=== PATIENT | male | born 1970 | race Caucasian/White ===

== ENCOUNTER 2019-06-07 17:44 | Emergency (ER) | payer MEDICARE, OTHER ==
[~2019-06-07] VITALS: Ht 185.4 cm; Wt 120.2 kg
[~2019-06-07 17:44] MED LIST: DIVA500EC PO; GLIP5 PO; LOPE2C PO; METF500 PO; QUET200 PO; SIMV40 PO
[2019-06-07] MEDS ORDERED: ASPI81CH PO (18:19)
[2019-06-07 18:57] LABS: BASOPHILS ABSOLUTE AUTO 0.03 K/mm3 (0.00-0.23); BASOPHILS PERCENT AUTO 0 % (0-2); EOSINOPHILS ABSOLUTE AUTO 0.11 K/mm3 (0.00-0.68); EOSINOPHILS PERCENT AUTO 1 % (0-6); Hematocrit 39.2 % (37.0-53.0); Hemoglobin 12.8 g/dL (13.5-17.5); IMMATURE GRAN ABSOLUTE AUTO 0.04 K/mm3 (0.00-0.10); IMMATURE GRAN PERCENT AUTO 0 % (0-1); LYMPHOCYTES ABSOLUTE AUTO 1.82 K/mm3 (0.84-5.20); LYMPHOCYTES PERCENT AUTO 20 % (21-46); MONOCYTES PERCENT AUTO 11 % (4-13); Mean Corpuscular HGB Conc 32.7 g/dL (31.5-36.5); Mean Corpuscular Volume 95 fL (80-100); Mean Platelet Volume 9.7 fL (9.1-12.4); NEUTROPHILS ABSOLUTE AUTO 6.04 K/mm3 (1.96-9.15); NEUTROPHILS PERCENT AUTO 67 % (41-73); Platelet Count 207 K/mm3 (150-400); RDW Coefficient Variation 12.6 % (11.7-14.2); RDW Standard Deviation 43.6 fL (35.1-46.3); Red Blood Cell Count 4.13 M/mm3 (4.30-5.90); White Blood Cell Count 9.04 K/mm3 (4.00-11.30)
[2019-06-07 19:22] LABS: Alanine Aminotransfer (ALT/SGP 13 U/L (12-78); Albumin, Blood 3.4 g/dL (3.4-5.0); Albumin/Globulin Ratio 0.8 (0.8-1.8); Alk Phos 78 U/L (50-136); Anion Gap 7 mmol/L (6-16); Aspartate Aminotrans (AST/SGOT 6 U/L (12-37); Bilirubin, Total 0.8 mg/dL (0.1-1.0); Blood Urea Nitrogen 9 mg/dL (8-24); Bun/Creatinine Ratio 12.9 (12.0-20.0); CO2, Blood 26 mmol/L (21-32); Calcium, Blood 8.5 mg/dL (8.5-10.1); Chloride, Blood 102 mmol/L (98-108); Globulin, Blood 4.2 g/dL (2.2-4.0); Glomerular Filtration Rate >60 (60-); Glucose, Blood 94 mg/dL (70-99); Potassium, Blood 3.6 mmol/L (3.5-5.5); Sodium, Blood 135 mmol/L (136-145); Total Protein, Blood 7.6 g/dL (6.4-8.2)
== END 2019-06-07 23:48 | disposition short-term general hospital (02) ==
LOC: ER 17:44
PROVIDERS: Emergency Medicine
DX: L02.215 Cutaneous abscess of perineum (principal); R73.03 Prediabetes; E78.5 Hyperlipidemia, unspecified; F17.200 Nicotine dependence, unspecified, uncomplicated; Z79.899 Other long term (current) drug therapy; Z79.82 Long term (current) use of aspirin
CPT/HCPCS: 36415; 72193; 80053; 85025; 96365-59; 99284-25; J2543; Q9967

== ENCOUNTER → 2021-08-04 | Outpatient (CLI) | payer MEDICARE, OTHER ==
[~2021-08-04] MED LIST changes: +ASPI81CH PO
[2021-08-04 17:33] LABS: Anion Gap 7 mmol/L (6-16); Blood Urea Nitrogen 6 mg/dL (8-24); Bun/Creatinine Ratio 11.9 (12.0-20.0); CO2, Blood 25 mmol/L (21-32); Calcium, Blood 8.7 mg/dL (8.5-10.1); Chloride, Blood 106 mmol/L (98-108); Creatinine, Blood 0.51 mg/dL (0.60-1.20); Glomerular Filtration Rate >60 (60-); Glucose, Blood 199 mg/dL (70-99); Potassium, Blood 4.3 mmol/L (3.5-5.5); Sodium, Blood 138 mmol/L (136-145)
== END | disposition home or self-care (01) ==
LOC: LAB 16:20 → LAB SHORT 16:20
PROVIDERS: Nurse Practitioner Family
DX: E11.65 Type 2 diabetes mellitus with hyperglycemia (principal)
CPT/HCPCS: 80048; 82043; 83036

== ENCOUNTER 2022-04-01 14:04 | Emergency (ER) | payer MEDICARE, OTHER ==
[~2022-04-01] VITALS: Ht 185.4 cm; Wt 111.1 kg
[2022-04-01 14:48] LABS: BASOPHILS ABSOLUTE AUTO 0.03 K/mm3 (0.00-0.23); BASOPHILS PERCENT AUTO 0 % (0-2); EOSINOPHILS ABSOLUTE AUTO 0.19 K/mm3 (0.00-0.68); EOSINOPHILS PERCENT AUTO 2 % (0-6); Hematocrit 41.6 % (37.0-53.0); Hemoglobin 14.1 g/dL (13.5-17.5); IMMATURE GRAN PERCENT AUTO 1 % (0-1); LYMPHOCYTES ABSOLUTE AUTO 1.81 K/mm3 (0.84-5.20); LYMPHOCYTES PERCENT AUTO 17 % (21-46); MONOCYTES ABSOLUTE AUTO 0.89 K/mm3 (0.16-1.47); MONOCYTES PERCENT AUTO 8 % (4-13); Mean Corpuscular HGB 31.4 pg (26.0-34.0); Mean Corpuscular HGB Conc 33.9 g/dL (31.5-36.5); Mean Corpuscular Volume 93 fL (80-100); Mean Platelet Volume 9.4 fL (9.1-12.4); NEUTROPHILS PERCENT AUTO 72 % (41-73); Platelet Count 260 K/mm3 (150-400); RDW Coefficient Variation 12.7 % (11.7-14.2); RDW Standard Deviation 43.5 fL (35.1-46.3); Red Blood Cell Count 4.49 M/mm3 (4.30-5.90); White Blood Cell Count 10.72 K/mm3 (4.00-11.30)
[2022-04-01 14:50] LABS: Source, Urine Voided
[2022-04-01 14:56] LABS: Appearance, Urine Turbid (Clear); Bilirubin, Urine Neg (Neg); Blood, Urine 2+ (Neg); Color, Urine Yellow (P-Yellow); Glucose Qualitative, Urine 4+ (Neg); Ketones, Urine 1+ (Neg); Leukocyte Esterase, Urine 3+ (Neg); Nitrite, Urine Neg (Neg); Protein, Urine 2+ (Neg); Urobilinogen, Urine NORM (Normal)
[2022-04-01 15:03] LABS: Bacteria Many /hpf; Hyaline Casts 0-2 /lpf (0-2); Red Blood Cells, Urine TNTC /hpf (0-2); Squamous Epithelial Cells Few /hpf (Few); Transitional Epithelial Cells Rare /hpf (0-Rare); White Blood Cells, Urine TNTC /hpf (0-5)
[2022-04-01 15:14] LABS: Albumin, Blood 3.5 g/dL (3.4-5.0); Albumin/Globulin Ratio 0.8 (0.8-1.8); Bilirubin, Total 0.4 mg/dL (0.1-1.0); Bun/Creatinine Ratio 21.2 (12.0-20.0); Calcium, Blood 9.4 mg/dL (8.5-10.1); Creatinine, Blood 0.57 mg/dL (0.60-1.20); Globulin, Blood 4.2 g/dL (2.2-4.0); Potassium, Blood 4.3 mmol/L (3.5-5.5); Total Protein, Blood 7.7 g/dL (6.4-8.2)
[2022-04-01] MEDS ORDERED: CEPH500 PO (16:06)
== END 2022-04-01 16:15 | disposition home or self-care (01) ==
LOC: ER 14:04
PROVIDERS: Emergency Medicine
DX: N39.0 Urinary tract infection, site not specified (principal); F17.200 Nicotine dependence, unspecified, uncomplicated; Z79.899 Other long term (current) drug therapy; Z79.82 Long term (current) use of aspirin; Z79.84 Long term (current) use of oral hypoglycemic drugs
CPT/HCPCS: 80053; 81001; 83690; 85025; A9270

== ENCOUNTER 2022-04-05 14:00 | Inpatient (IN) | payer MEDICARE, OTHER ==
[~2022-04-05] VITALS: Ht 182.9 cm; Wt 111.1 kg
[~2022-04-05 14:00] MED LIST changes: +CEPH500 PO
[2022-04-05 15:16] LABS: BASOPHILS ABSOLUTE AUTO 0.08 K/mm3 (0.00-0.23); BASOPHILS PERCENT AUTO 0 % (0-2); EOSINOPHILS ABSOLUTE AUTO 0.08 K/mm3 (0.00-0.68); EOSINOPHILS PERCENT AUTO 0 % (0-6); Hematocrit 40.4 % (37.0-53.0); Hemoglobin 13.4 g/dL (13.5-17.5); IMMATURE GRAN PERCENT AUTO 3 % (0-1); LYMPHOCYTES ABSOLUTE AUTO 1.04 K/mm3 (0.84-5.20); LYMPHOCYTES PERCENT AUTO 6 % (21-46); MONOCYTES ABSOLUTE AUTO 2.23 K/mm3 (0.16-1.47); MONOCYTES PERCENT AUTO 13 % (4-13); Mean Corpuscular HGB Conc 33.2 g/dL (31.5-36.5); Mean Corpuscular Volume 94 fL (80-100); Mean Platelet Volume 9.2 fL (9.1-12.4); NEUTROPHILS ABSOLUTE AUTO 13.85 K/mm3 (1.96-9.15); NEUTROPHILS PERCENT AUTO 78 % (41-73); Platelet Count 261 K/mm3 (150-400); RDW Coefficient Variation 12.7 % (11.7-14.2); RDW Standard Deviation 43.7 fL (35.1-46.3); Red Blood Cell Count 4.32 M/mm3 (4.30-5.90); White Blood Cell Count 17.78 K/mm3 (4.00-11.30)
[2022-04-05 15:17] LABS: Source, Urine Clean Catch
[2022-04-05 15:20] LABS: Appearance, Urine Cloudy (Clear); Bilirubin, Urine Neg (Neg); Blood, Urine 2+ (Neg); Color, Urine Amber (P-Yellow); Glucose Qualitative, Urine 4+ (Neg); Ketones, Urine 1+ (Neg); Leukocyte Esterase, Urine 3+ (Neg); Nitrite, Urine Neg (Neg); Protein, Urine 2+ (Neg); Urobilinogen, Urine NORM (Normal)
[2022-04-05 15:30] LABS: C-REACTIVE PROTEIN, EXT RANGE 14.7 mg/dL (0.000-0.300)
[2022-04-05 15:33] LABS: Albumin, Blood 2.8 g/dL (3.4-5.0); Albumin/Globulin Ratio 0.6 (0.8-1.8); Bilirubin, Total 0.6 mg/dL (0.1-1.0); Bun/Creatinine Ratio 16.7 (12.0-20.0); Calcium, Blood 8.6 mg/dL (8.5-10.1); Creatinine, Blood 0.66 mg/dL (0.60-1.20); Globulin, Blood 4.5 g/dL (2.2-4.0); Potassium, Blood 3.7 mmol/L (3.5-5.5); Total Protein, Blood 7.3 g/dL (6.4-8.2)
[2022-04-05 15:34] LABS: Squamous Epithelial Cells Few /hpf (Few); White Blood Cells, Urine TNTC /hpf (0-5)
[2022-04-05 15:35] LABS: Bacteria Few /hpf; Mucus Light (0-Heavy)
[2022-04-05 18:49] LABS: Valproic Acid 48.8 ug/mL (50.0-100.0)
[2022-04-05] MEDS ORDERED: BASAGLAR K100 UNIT/8 SQ (18:56)
[2022-04-05] MEDS ORDERED: LISINOPRIL2.5 MG PO (18:56)
[2022-04-05] MEDS ORDERED: DIVALPROEX SOD500 M2 PO (18:59)
--- NOTE | 2022-04-05 21:32 | NUR ---
2119: REPORT RECIEVED FROM ER NURSE HUGO.
[2022-04-06 06:30] LABS: BASOPHILS ABSOLUTE AUTO 0.09 K/mm3 (0.00-0.23); BASOPHILS PERCENT AUTO 1 % (0-2); EOSINOPHILS ABSOLUTE AUTO 0.14 K/mm3 (0.00-0.68); EOSINOPHILS PERCENT AUTO 1 % (0-6); Hematocrit 37.3 % (37.0-53.0); Hemoglobin 12.7 g/dL (13.5-17.5); IMMATURE GRAN ABSOLUTE AUTO 0.49 K/mm3 (0.00-0.10); IMMATURE GRAN PERCENT AUTO 3 % (0-1); LYMPHOCYTES PERCENT AUTO 12 % (21-46); MONOCYTES ABSOLUTE AUTO 1.94 K/mm3 (0.16-1.47); MONOCYTES PERCENT AUTO 12 % (4-13); Mean Corpuscular HGB 31.6 pg (26.0-34.0); Mean Corpuscular Volume 93 fL (80-100); NEUTROPHILS ABSOLUTE AUTO 11.49 K/mm3 (1.96-9.15); NEUTROPHILS PERCENT AUTO 72 % (41-73); Platelet Count 251 K/mm3 (150-400); RDW Coefficient Variation 12.8 % (11.7-14.2); RDW Standard Deviation 43.7 fL (35.1-46.3); Red Blood Cell Count 4.02 M/mm3 (4.30-5.90); White Blood Cell Count 16.05 K/mm3 (4.00-11.30)
[2022-04-06 06:51] LABS: Albumin, Blood 2.6 g/dL (3.4-5.0); Albumin/Globulin Ratio 0.6 (0.8-1.8); Bilirubin, Total 0.3 mg/dL (0.1-1.0); Calcium, Blood 8.6 mg/dL (8.5-10.1); Creatinine, Blood 0.56 mg/dL (0.60-1.20); Globulin, Blood 4.2 g/dL (2.2-4.0); Potassium, Blood 3.6 mmol/L (3.5-5.5); Total Protein, Blood 6.8 g/dL (6.4-8.2)
--- NOTE | 2022-04-06 07:12 | NUR ---
SHIFT SUMMARY PT AOX4. IMPULSIVE AND CARELESS WITH IV LINES/TELE. PT APPEARS STEADY ON HIS FEET. BED ALARM ON FOR SAFETY. VOIDING FREQUENTLY OVERNIGHT WITH DECENT AMOUNT EACH TIME (200-350MLS), DARK URINE. PT ALSO HAVE MULTIPLE BM, SOME HARD SMALL AND PASTY. PT ADMITTED FOR PERINEAL ABSCESS. APPEARS TO HAVE SWELLING AND REDNESS IN PERINEAL AREA AND SCROTUM WITH SOME SEROSANG DRAINAGE. PT APPEARS TO BE IN A LOT OF PAIN WHEN SITTING ON HIS BUTTOM. FACE SCALE 10/10, SCREAMS INTERMITTENTLY. PAIN MEDICATED WITH FENTANYL 50MCG. APPEARS SOME RELIEF. PT SLEEPING GOOD OVERNIGHT. CBG'S ABOVE 200. NS INFUSING 75MLS/HR. ABX GIVEN VIA IV. VSS. TELE ON NSR AT 80'S PER ADAN. CALL LIGHT WITHIN REACH. REPORT GIVEN TO DEBORAH BEGUM.
[2022-04-06 10:11] LABS: Vancomycin, Trough 8.9 ug/mL (5.0-10.0)
[2022-04-06 10:20] LABS: SARS-Cov-2 (COVID-19) PCR, MMC NEGATIVE (NEGATIVE)
--- NOTE | 2022-04-06 12:57 | NUR ---
04/06/22 1257 Denise Aguirre MARTIN CATHETER PLACED INTRAOPERATIVELY BY SURGEON.
--- NOTE | 2022-04-06 18:41 | NUR ---
SHIFT SUMMARY PT HAS BEEN HAVING EPISODES OF AGITATION AND NON-COMPLIANCE THROUGHOUT THE SHIFT. PT TO OR FOR I&D OF PERINEAL ABSCESS, RETURNING TO ROOM AT APPROX 1420. AFTER RETURN TO ROOM, PT REMOVED TELEBOX LEADS AND PULLED HIS IV. PER DR CLEMONS, TELE MONITORING COULD BE DCED. PT ATE FOOD BROUGHT TO HIM BY A VISITOR WELL MOST OF HIS DINNER TRAY, APPEARS TO BE TOLERATING PO INPUT WELL. IV REESTABLISHED IN R HAND W/ IV ABX ADMINISTERED. PT APPEARS TO MAINTAIN HIS AGITATION. PT IS RESTING IN ROOM AT THIS TIME. WILL CONTINUE TO MONITOR AND UPDATE NECESSARY.
[2022-04-07 03:48] LABS: Hematocrit 39.1 % (37.0-53.0); Hemoglobin 13.2 g/dL (13.5-17.5); Mean Corpuscular HGB 31.3 pg (26.0-34.0); Mean Corpuscular HGB Conc 33.8 g/dL (31.5-36.5); Mean Corpuscular Volume 93 fL (80-100); Mean Platelet Volume 9.1 fL (9.1-12.4); Platelet Count 319 K/mm3 (150-400); RDW Coefficient Variation 12.6 % (11.7-14.2); RDW Standard Deviation 42.9 fL (35.1-46.3); Red Blood Cell Count 4.22 M/mm3 (4.30-5.90); White Blood Cell Count 15.74 K/mm3 (4.00-11.30)
[2022-04-07 04:04] LABS: Bun/Creatinine Ratio 22.6 (12.0-20.0); Calcium, Blood 8.7 mg/dL (8.5-10.1); Creatinine, Blood 0.58 mg/dL (0.60-1.20); Potassium, Blood 4.1 mmol/L (3.5-5.5)
[2022-04-07 04:09] LABS: BAND PERCENT MAN 13 % (0-8); BASOPHILS PERCENT MAN 0 % (0-2); EOSINOPHILS PERCENT MAN 0 % (0-6); LYMPHOCYTES ABSOLUTE MAN 0.94 K/mm3 (0.84-5.20); LYMPHOCYTES PERCENT MAN 6 % (21-46); METAMYELOCYTE ABSOLUTE MAN 0.47 K/mm3 (0.00-0.00); METAMYELOCYTE PERCENT MAN 3 % (0-0); MONOCYTES ABSOLUTE MAN 0.62 K/mm3 (0.16-1.47); MONOCYTES PERCENT MAN 4 % (4-13); MYELOCYTE ABSOLUTE MAN 0.31 K/mm3 (0.00-0.00); MYELOCYTE PERCENT MAN 2 % (0-0); NEUTROPHILS ABSOLUTE MAN 13.37 K/mm3 (1.96-9.15); SEG NEUTROPHILS PERCENT MAN 72 % (41-73); TOTAL CELLS COUNTED 100
--- NOTE | 2022-04-07 04:09 | NUR ---
PT IS A&OX4, INDEPENDENT WITH CARES AND IS ABLE TO MAKE NEEDS KNOWN. POST OP DAY 1 FOR A SURGICAL I&D OF THE PERINEUM, DRESSINGS CDI. PT DENIES PAIN AT THIS TIME. PREVIOUS SHIFT REPORTS PT PULLING AT IV LINES, PT HAS BEEN APPROPRIATE THIS SHIFT. SLEEPS MINIMALLY THIS SHIFT, 4+ HOURS. HAS MARTIN IN PLACE FOR SURGICAL HEALING. WILL CONTINUE TO MONITOR THIS PT AND GIVE HANDOFF REPORT TO ONCOMING NURSE.
[2022-04-07] MEDS ORDERED: VISBIOME 112.51 EACH PO (10:52)
[2022-04-07] MEDS ORDERED: AMOCLA875 PO (10:52)
[2022-04-07] MEDS ORDERED: HYDR1TAB94 PO (10:53)
--- NOTE | 2022-04-07 12:11 | NUR ---
DISCHARGE SUMMARY POD1 PERINEAL I&D, TOLERATING PO, PAIN TOLERABLE WITHOUT MEDICATIONS, AMBULATING INDEPENDENTLY, VOIDING WELL. PT REMOVED HIS OWN IV PRIOR TO DISCHARGE ORDERS AND HAS BEEN EAGER TO GO HOME. DISCUSSED DISCHARGE ORDERS WITH THE PATIENT INCLUDING NEW PRESCRIPTIONS WHICH WERE FAXED TO HIS PHARMACY ON RECORD, HOME CARE, PAIN MANAGEMENT, AND FOLLOW UP APPOINTMENTS. PT STATED HE WAS JUST GOING TO GO STRAIGHT HOME SO IT WAS EMPHASIZED THAT HE SHOULD SUPERVISOR DRYING AND SOFTENING AT LEAST HIS ANTIBIOTICS OR HAVE SOMEONE DO IT FOR HIM SO HE IS ABLE TO TAKE HIS NEXT DOSE. PT REPORTED UNDERSTANDING ALL INSTRUCTIONS AND HAD NO QUESTIONS AT THIS TIME. PT ESCORTED OUT BY FRIEND WHO IS TAKING HIM HOME.
== END 2022-04-07 12:00 | disposition home or self-care (01) | DRG 603 ==
LOC: ER 14:00 → SURS 19:32
PROVIDERS: Emergency Medicine; Internal Medicine; Surgery; ADMIT Internal Medicine
PROC: 0VQ5XZZ Repair Scrotum, External Approach (ICD-10-PCS; 2022-04-06)
PROC: 0W9M0ZZ Drainage of Male Perineum, Open Approach (ICD-10-PCS; principal; 2022-04-06 10:45)
DX: L02.215 Cutaneous abscess of perineum (principal); N99.71 Accidental puncture and laceration of a genitourinary system organ or structure during a genitourinary system procedure; L03.315 Cellulitis of perineum; R30.0 Dysuria; F17.210 Nicotine dependence, cigarettes, uncomplicated; Z20.822 Contact with and (suspected) exposure to COVID-19; E78.5 Hyperlipidemia, unspecified; E11.9 Type 2 diabetes mellitus without complications; F25.9 Schizoaffective disorder, unspecified; Z98.890 Other specified postprocedural states; Z79.82 Long term (current) use of aspirin; Z79.84 Long term (current) use of oral hypoglycemic drugs; Z79.899 Other long term (current) drug therapy; Y83.8 Other surgical procedures as the cause of abnormal reaction of the patient, or of later complication, without mention of misadventure at the time of the procedure
CPT/HCPCS: 36415; 51701; 51798; 72193; 80048; 80053; 80164; 80202; 81001; 82947; 83036; 83605; 85025; 86140; 87040; 87070; 87075; 87086; 87205; 93005; 93010; 96361; 96365; 96366; 96367; 96375; 99284-25; A9270; J0295; J0692; J1100; J1815; J1885; J2405; J2543; J2704; J3010; J3370; J7030; J7060; J7120; Q9967; U0004

== ENCOUNTER → 2022-09-11 | Outpatient (CLI) | payer MEDICARE, OTHER ==
[~2022-09-11] MED LIST changes: +AMOCLA875 PO; +BASAGLAR K100 UNIT/8 SQ; +DIVALPROEX SOD500 M2 PO; +HYDR1TAB94 PO; +LISINOPRIL2.5 MG PO; +VISBIOME 112.51 EACH PO
== END | disposition home or self-care (01) ==
LOC: LAB 14:30 → LAB SHORT 14:30
DX: E11.65 Type 2 diabetes mellitus with hyperglycemia (principal); F20.9 Schizophrenia, unspecified; Z79.4 Long term (current) use of insulin
CPT/HCPCS: 82043

== ENCOUNTER 2022-10-08 13:27 | Inpatient (IN) | payer MEDICARE, OTHER ==
[~2022-10-08] VITALS: Ht 182.9 cm; Wt 113.0 kg
[2022-10-08 14:49] LABS: Source, Urine Clean Catch
[2022-10-08 14:54] LABS: Bilirubin, Urine Neg (Neg); Blood, Urine 1+ (Neg); Glucose Qualitative, Urine 4+ (Neg); Ketones, Urine 1+ (Neg); Leukocyte Esterase, Urine 3+ (Neg); Nitrite, Urine Neg (Neg); Protein, Urine 1+ (Neg); Urobilinogen, Urine NORM (Normal)
[2022-10-08 15:16] LABS: Appearance, Urine Hazy (Clear); Color, Urine Yellow (P-Yellow)
[2022-10-08 15:17] LABS: Bacteria Mod /hpf; Hyaline Casts 0-2 /lpf (0-2); Squamous Epithelial Cells Rare /hpf (Few); White Blood Cells, Urine 50-100 /hpf (0-5)
[2022-10-08 20:14] LABS: BASOPHILS ABSOLUTE AUTO 0.02 K/mm3 (0.00-0.23); BASOPHILS PERCENT AUTO 0 % (0-2); EOSINOPHILS ABSOLUTE AUTO 0.06 K/mm3 (0.00-0.68); EOSINOPHILS PERCENT AUTO 1 % (0-6); Hematocrit 39.5 % (37.0-53.0); Hemoglobin 13.3 g/dL (13.5-17.5); IMMATURE GRAN ABSOLUTE AUTO 0.07 K/mm3 (0.00-0.10); IMMATURE GRAN PERCENT AUTO 1 % (0-1); LYMPHOCYTES ABSOLUTE AUTO 1.96 K/mm3 (0.84-5.20); LYMPHOCYTES PERCENT AUTO 21 % (21-46); MONOCYTES ABSOLUTE AUTO 1.08 K/mm3 (0.16-1.47); MONOCYTES PERCENT AUTO 12 % (4-13); Mean Corpuscular HGB 31.1 pg (26.0-34.0); Mean Corpuscular HGB Conc 33.7 g/dL (31.5-36.5); Mean Corpuscular Volume 93 fL (80-100); NEUTROPHILS PERCENT AUTO 65 % (41-73); Platelet Count 223 K/mm3 (150-400); RDW Coefficient Variation 13.3 % (11.7-14.2); RDW Standard Deviation 45.3 fL (35.1-46.3); Red Blood Cell Count 4.27 M/mm3 (4.30-5.90); White Blood Cell Count 9.19 K/mm3 (4.00-11.30)
[2022-10-08 20:41] LABS: Albumin, Blood 3.4 g/dL (3.4-5.0); Albumin/Globulin Ratio 0.8 (0.8-1.8); Bilirubin, Total 0.7 mg/dL (0.1-1.0); Bun/Creatinine Ratio 15.6 (12.0-20.0); Calcium, Blood 8.8 mg/dL (8.5-10.1); Creatinine, Blood 0.51 mg/dL (0.60-1.20); Globulin, Blood 4.4 g/dL (2.2-4.0); Potassium, Blood 4.2 mmol/L (3.5-5.5); Total Protein, Blood 7.8 g/dL (6.4-8.2)
[2022-10-09 01:19] LABS: Influenza A, PCR NEGATIVE (NEGATIVE); Influenza B, PCR NEGATIVE (NEGATIVE); Resp Syncytial Virus, PCR NEGATIVE (NEGATIVE); SARS-Cov-2 (COVID-19) PCR, MMC NEGATIVE (NEGATIVE)
[2022-10-09 02:07] LABS: BASOPHILS ABSOLUTE AUTO 0.02 K/mm3 (0.00-0.23); BASOPHILS PERCENT AUTO 0 % (0-2); EOSINOPHILS ABSOLUTE AUTO 0.13 K/mm3 (0.00-0.68); EOSINOPHILS PERCENT AUTO 2 % (0-6); Hematocrit 35.5 % (37.0-53.0); Hemoglobin 12.3 g/dL (13.5-17.5); IMMATURE GRAN ABSOLUTE AUTO 0.04 K/mm3 (0.00-0.10); IMMATURE GRAN PERCENT AUTO 1 % (0-1); LYMPHOCYTES ABSOLUTE AUTO 2.24 K/mm3 (0.84-5.20); LYMPHOCYTES PERCENT AUTO 25 % (21-46); MONOCYTES PERCENT AUTO 13 % (4-13); Mean Corpuscular HGB 31.8 pg (26.0-34.0); Mean Corpuscular HGB Conc 34.6 g/dL (31.5-36.5); Mean Corpuscular Volume 92 fL (80-100); Mean Platelet Volume 9.9 fL (9.1-12.4); NEUTROPHILS ABSOLUTE AUTO 5.29 K/mm3 (1.96-9.15); NEUTROPHILS PERCENT AUTO 60 % (41-73); Platelet Count 214 K/mm3 (150-400); RDW Coefficient Variation 13.2 % (11.7-14.2); RDW Standard Deviation 44.9 fL (35.1-46.3); Red Blood Cell Count 3.87 M/mm3 (4.30-5.90); White Blood Cell Count 8.82 K/mm3 (4.00-11.30)
[2022-10-09 02:30] LABS: Albumin, Blood 2.9 g/dL (3.4-5.0); Albumin/Globulin Ratio 0.7 (0.8-1.8); Bilirubin, Total 0.3 mg/dL (0.1-1.0); Bun/Creatinine Ratio 13.3 (12.0-20.0); Calcium, Blood 8.4 mg/dL (8.5-10.1); Creatinine, Blood 0.6 mg/dL (0.60-1.20); Globulin, Blood 3.9 g/dL (2.2-4.0); Potassium, Blood 3.9 mmol/L (3.5-5.5); Total Protein, Blood 6.8 g/dL (6.4-8.2)
--- NOTE | 2022-10-09 09:07 | NUR ---
PT ADMITTED THIS AM 0050- NON COMPLIANT WITH CALLING STAFF FOR ASSIST OOB FOR VOID.PT WAS MILDLY WOBBLING ON FEET WITH AMBULATION IN ROOM ON ADMIT.PT VOIDS FREQUENTLY AND IS IMPULSIVE- OFTEN SETTING OF BED ALARM AND DOES NOT WAIT FOR NURSING ASSIST.
--- NOTE | 2022-10-09 09:40 | NUR ---
ASSUMED CARE OF PT AT THIS TIME. PT SLEEPING, AWAKENS WITH LOUD VERBAL STIMULI. DENIES ANY NEEDS AT THIS TIME.
--- NOTE | 2022-10-09 12:09 | NUR ---
PT TO DAY SURGERY AT APROX 1148
--- NOTE | 2022-10-09 13:00 | NUR ---
REPORT FROM JACK Julien RN. PT RESTING COMFORTABLY IN BED, WAKES TO SOUND AND TOUCH, IS AXOX4, ABLE TO REPOSITION SELF IN BED.
--- NOTE | 2022-10-09 13:35 | NUR ---
CHECKED CHEM BG AT BEDSIDE PER PROTOCAL BEFORE PUSHING BACK TO OR, BUT CHEM BG CAME BACK AT 56. NOTIFIED ANESTHESIA WHO GAVE VERBAL ORDER TO ADMINISTER ONE AMUPLUE OF D50, RECHECK BLOOD SUGAR FIVE MINUTES AFTER. NOTIFIRED ANESTHESIA OF INCREASE IN CHEM BG TO 154 FIVE MINUTES AFTER ADMINISTERING D50. PT CLEARED BY ANESTHESIA TO GO TO SURGERY.
--- NOTE | 2022-10-09 14:03 | NUR ---
10/09/22 1403 Margo Wallace PATIENT ON SCHEDULED ANTIBIOTICS.
--- NOTE | 2022-10-09 15:07 | NUR ---
SHIFT SUMMARY: PATIENT CAME BACK FROM PACU TODAY AT 1500. POD 0 SCROTAL I&D ABSCESS PATIENT IS A&OX4. VS ARE WNL AND IS ON RA. PATIENT DENIES PAIN AT THIS TIME. HE HAS A PINROSE WITH GAUZE AND MESH UNDERWEAR THAT HAVE A SCANT AMOUNT OF BLOOD ON THE GAUZE ON HIS BUTTOCKS. DENIES NUMBNESS OR TINGLING. HE CAN MOVE ALL EXTREMITIES. HE IS TOLERATING PO INTAKE AND DENIES NAUSEA/VOMITING. HE IS LAYING IN BED. CALL LIGHT WITHIN REACH.
[2022-10-09] MEDS ORDERED: QUET300 PO (20:21)
[2022-10-09 23:19] LABS: Vancomycin, Trough 11.3 ug/mL (5.0-10.0)
--- NOTE | 2022-10-09 23:27 | NUR ---
CBG: PT HS CBG 402, DR RAMIREZ NOTIFIED, NEW ORDER 1X DOSE OF 8 UNITS HUMALOG AND TO RECHECK IN 2 HRS. REPEAT CBG READ 372. DR RAMIREZ NOTIFIED AGAIN, NEW ORDER FOR 1X DOSE OF 5 UNITS. PT REQ MULITPLE PACKAGES OF CRACKERS, EDUCATION R/T DIET AND ELEVATED CBG ATTEMPTED, PT MINIMALLY RECEPTIVE.
[2022-10-10 05:30] LABS: Hematocrit 40.3 % (37.0-53.0); Hemoglobin 13.6 g/dL (13.5-17.5)
[2022-10-10 05:48] LABS: Bun/Creatinine Ratio 24.2 (12.0-20.0); Creatinine, Blood 0.58 mg/dL (0.60-1.20); Potassium, Blood 4.4 mmol/L (3.5-5.5)
--- NOTE | 2022-10-10 07:28 | NUR ---
POD 1 S/P I&D. FRANNIE DRAIN IN PLACE, GAUZE AND ABD PAD CHANGED X2 THIS SHIFT R/T SS DRNG. PT DENIED PAIN. PT LITO PO, CBG ELEVATED, PT MED PER EMAR. ADA DIET EDUCATION PROVIDED, PT MINIMALLY RECEPTIVE. PT VOIDING URINE W/O DIFFICULTY. IV ABX CONT PER ORDERS. PT INDPE IN ROOM, IS COOP W/CARE.
--- NOTE | 2022-10-10 14:59 | NUR ---
SHIFT SUMMARY: POD 1 LEFT BUTTOCKS I&D NO SIGNIFICANT CHANGES. PATIENT IS INDEP. IN THE ROOM. HE IS VOIDING AND TOLERATING PO INTAKE. HE DENIES PAIN AND REFUSES PAIN MEDICATIONS. HE HAD A NEW IV REPLACED SINCE HE PULLED THE OTHER TWO OUT HIMSELF. WHEN ASKED WHY HE PULLED THE OTHER TWO IV'S OUT HE STATED "BECAUSE THEY WERE ANNOYING AND I THOUGHT I WAS GOING HOME". HIS PINROSE SITE HAS GAUZE AND ATTENDS IN PLACE THAT ARE C/D/I. HE IS CURRENTLY LAYING IN BED. CALL LIGHT WITHIN REACH. THE PLAN IS ONCE HIS MICROBIOLOGY RESULTS COME BACK AND IF IT WILL STILL BE APPROPRIATE HE WILL BE ABLE TO DISCHARGE HOME TOMORROW.
[2022-10-10 23:18] LABS: Vancomycin, Trough 13.8 ug/mL (5.0-10.0)
--- NOTE | 2022-10-11 05:07 | NUR ---
SOIL TECHNOLOGIST SUMMARY NO ACUTE CHANGES THIS SHIFT. PT INDEPENDENT IN ROOM AND GOES OUTSIDE TO "GET SOME FRESH AIR" FREQUENTLY. CONTINUES ON IV ABX. DRAINAGE FROM FRANNIE DRAIN APPEARS TO BE DECREASING, PT ONLY ALLOWS FOR A LIMITED ASSESSMENT OF AREA. PT DENIES PAIN THROUGH NIGHT. PT CONTINUES TO ASK FOR DRINKS AND SNACKS THAT ARE NOT ADA COMPLIANT. ATTEMPTED EDUCATION ON BETTER FOOD CHOICES AND PT REMAINS UNINTERESTED IN ATTEMPTING TO BETTER CONTROL HIS CBG'S. PT VERY EAGER TO BE DISCHARGED LATER TODAY. VSS, WILL CONTINUE TO MONITOR.
[2022-10-11] MEDS ORDERED: VISBIOME 112.51 EACH PO (08:14)
[2022-10-11] MEDS ORDERED: SULTRIDS PO (08:15)
--- NOTE | 2022-10-11 09:50 | NUR ---
DISCHARGE NOTE POD 2 PERINEAL I&D, A/OX4, VSS, TOLERATING PO, AMBULATING INDEPENDENTLY, VOIDING WELL. PT REPORTED WANTING TO DC SOON HE CAN, INCISION SITE SOILED c STOOL AND PT RECOMMENDED TO CLEAN UP IN SHOWER BEFORE HE LEAVES WHICH HE REPORTS HE WILL DO. DISCUSSED DISCHARGE INFORMATION WITH PT INCLUDING HOME CARE, MEDICATIONS, AND FOLLOW UP CARE. PROVIDED CONTACT INFORMATION FOR FOLLOW UPS AND SURGEON OFFICE INFORMATION. NO QUESTIONS, IV REMOVED BY THIS RN. PT SHOWERED AND LEFT ON FOOT TO GO HOME.
== END 2022-10-11 09:43 | disposition home or self-care (01) | DRG 872 ==
LOC: ER 13:27 → SURS 10-09 00:05
PROVIDERS: Family Medicine; Physician Assistant; Student in an Organized Health Care Education/Training Program; Surgery; ADMIT Internal Medicine
PROC: 0J9B0ZZ Drainage of Perineum Subcutaneous Tissue and Fascia, Open Approach (ICD-10-PCS; principal; 2022-10-09 12:00)
DX: A41.81 Sepsis due to Enterococcus (principal); L02.215 Cutaneous abscess of perineum; E87.1 Hypo-osmolality and hyponatremia; N39.0 Urinary tract infection, site not specified; Z28.21 Immunization not carried out because of patient refusal; Z20.822 Contact with and (suspected) exposure to COVID-19; N43.3 Hydrocele, unspecified; E11.9 Type 2 diabetes mellitus without complications; F17.210 Nicotine dependence, cigarettes, uncomplicated; E11.65 Type 2 diabetes mellitus with hyperglycemia; F25.9 Schizoaffective disorder, unspecified; E78.5 Hyperlipidemia, unspecified; Z98.890 Other specified postprocedural states; Z79.4 Long term (current) use of insulin; Z79.01 Long term (current) use of anticoagulants; Z79.899 Other long term (current) drug therapy
CPT/HCPCS: 0241U; 36415; 74177; 76870; 80048; 80053; 80202; 81001; 82947; 83605; 85014; 85018; 85025; 87040; 87070; 87075; 87077; 87086; 87106; 87186; 87205; 96365-59; 96367; 99284-25; A9270; J1100; J1815; J2250; J2405; J2543; J2704; J2795; J3010; J3370; J7030; J7050; J7120; Q9967

== ENCOUNTER 2022-12-03 11:33 | Day surgery (SDC) | payer MEDICARE, OTHER ==
[~2022-12-03] VITALS: Ht 182.9 cm; Wt 114.0 kg
[~2022-12-03 11:33] MED LIST changes: +QUET300 PO; +SULTRIDS PO
--- NOTE | 2022-12-03 12:55 | NUR ---
12/03/22 1255 Yumiko De La O FIVE ATTEMPTS AT IV. FIRST ATTEMPT AT IV BY NAOMI IN RIGHT HAND MISSED. SECOND ATTEMPT AT IV BY Cecily WHALEN RIGHT WRIST INFILTREATED. THIRD ATTEMPT AT IV BY RN IN LEFT HAND MISSED. FOURTH ATTEMPT AT IV BY RN IN RIGHT AC MISSED. FIFTH ATTEMPT AT IV BY MA IN RIGHT FOREARM SUCCESSFUL.
== END 2022-12-03 14:20 | disposition home or self-care (01) ==
LOC: ORSCSDS 11:33
PROVIDERS: Internal Medicine Gastroenterology
PROC: 0DBM8ZX Excision of Descending Colon, Via Natural or Artificial Opening Endoscopic, Diagnostic (ICD-10-PCS; principal; 2022-12-03 13:15)
DX: Z12.11 Encounter for screening for malignant neoplasm of colon (principal); D12.4 Benign neoplasm of descending colon; E11.9 Type 2 diabetes mellitus without complications; F17.210 Nicotine dependence, cigarettes, uncomplicated; E66.8 Other obesity; Z68.34 Body mass index [BMI] 34.0-34.9, adult
CPT/HCPCS: 82947; 88305; J2704; J7120

== ENCOUNTER → 2022-12-06 | Outpatient (CLI) | payer MEDICARE, OTHER ==
[2022-12-06 18:58] LABS: BASOPHILS ABSOLUTE AUTO 0.02 K/mm3 (0.00-0.23); BASOPHILS PERCENT AUTO 0 % (0-2); EOSINOPHILS ABSOLUTE AUTO 0.13 K/mm3 (0.00-0.68); EOSINOPHILS PERCENT AUTO 2 % (0-6); Hematocrit 42.1 % (37.0-53.0); Hemoglobin 13.8 g/dL (13.5-17.5); IMMATURE GRAN ABSOLUTE AUTO 0.03 K/mm3 (0.00-0.10); IMMATURE GRAN PERCENT AUTO 1 % (0-1); LYMPHOCYTES ABSOLUTE AUTO 2.83 K/mm3 (0.84-5.20); LYMPHOCYTES PERCENT AUTO 53 % (21-46); MONOCYTES ABSOLUTE AUTO 0.39 K/mm3 (0.16-1.47); MONOCYTES PERCENT AUTO 7 % (4-13); Mean Corpuscular HGB 30.8 pg (26.0-34.0); Mean Corpuscular HGB Conc 32.8 g/dL (31.5-36.5); Mean Corpuscular Volume 94 fL (80-100); Mean Platelet Volume 10.6 fL (9.1-12.4); NEUTROPHILS ABSOLUTE AUTO 1.92 K/mm3 (1.96-9.15); NEUTROPHILS PERCENT AUTO 36 % (41-73); Platelet Count 201 K/mm3 (150-400); RDW Coefficient Variation 13.3 % (11.7-14.2); RDW Standard Deviation 45.8 fL (35.1-46.3); Red Blood Cell Count 4.48 M/mm3 (4.30-5.90); White Blood Cell Count 5.32 K/mm3 (4.00-11.30)
[2022-12-06 21:52] LABS: Albumin, Blood 3.7 g/dL (3.4-5.0); Albumin/Globulin Ratio 0.9 (0.8-1.8); Bilirubin, Total 0.6 mg/dL (0.1-1.0); Bun/Creatinine Ratio 8.3 (12.0-20.0); Calcium, Blood 8.8 mg/dL (8.5-10.1); Creatinine, Blood 0.61 mg/dL (0.60-1.20); Total Protein, Blood 7.7 g/dL (6.4-8.2)
== END | disposition home or self-care (01) ==
LOC: LAB SHORT 16:52 → LAB 16:52
PROVIDERS: Nurse Practitioner Family
DX: E11.65 Type 2 diabetes mellitus with hyperglycemia (principal); Z79.4 Long term (current) use of insulin
CPT/HCPCS: 80053; 83036; 85025

== ENCOUNTER → 2023-02-22 | Outpatient (CLI) | payer MEDICARE, OTHER ==
[2023-02-22 18:27] LABS: Valproic Acid 79.6 ug/mL (50.0-100.0)
[2023-02-22 18:35] LABS: Anion Gap 3 mmol/L (6-16); Blood Urea Nitrogen 12 mg/dL (8-24); Bun/Creatinine Ratio 21.1 (12.0-20.0); CO2, Blood 25 mmol/L (21-32); Calcium, Blood 8.9 mg/dL (8.5-10.1); Chloride, Blood 106 mmol/L (98-108); Creatinine, Blood 0.57 mg/dL (0.60-1.20); Glomerular Filtration Rate 119 (60-); Glucose, Blood 277 mg/dL (70-99); Potassium, Blood 4.4 mmol/L (3.5-5.5); Sodium, Blood 134 mmol/L (136-145)
== END | disposition home or self-care (01) ==
LOC: LAB SHORT 14:09 → LAB 14:09
PROVIDERS: Nurse Practitioner Family
DX: Z13.29 Encounter for screening for other suspected endocrine disorder (principal); E11.65 Type 2 diabetes mellitus with hyperglycemia; F20.9 Schizophrenia, unspecified; Z79.4 Long term (current) use of insulin
CPT/HCPCS: 80048; 80164; 83036; 84443

== ENCOUNTER 2023-04-29 09:04 | Day surgery (SDC) | payer MEDICARE, OTHER ==
[~2023-04-29] VITALS: Ht 182.9 cm; Wt 115.0 kg
[2023-04-29 11:50] VITALS: BP 124/96
== END 2023-04-29 11:54 | disposition home or self-care (01) ==
LOC: ORSCSDS 09:04
PROVIDERS: Internal Medicine Gastroenterology
PROC: 0DBH8ZX Excision of Cecum, Via Natural or Artificial Opening Endoscopic, Diagnostic (ICD-10-PCS; principal; 2023-04-29 10:30)
PROC: 0DBN8ZX Excision of Sigmoid Colon, Via Natural or Artificial Opening Endoscopic, Diagnostic (ICD-10-PCS; principal; 2023-04-29 10:30)
DX: K52.9 Noninfective gastroenteritis and colitis, unspecified (principal); Z86.010 Personal history of colon polyps; D12.0 Benign neoplasm of cecum; K63.5 Polyp of colon; I10 Essential (primary) hypertension; E11.9 Type 2 diabetes mellitus without complications; E78.5 Hyperlipidemia, unspecified; F17.210 Nicotine dependence, cigarettes, uncomplicated; F20.9 Schizophrenia, unspecified; Z79.84 Long term (current) use of oral hypoglycemic drugs; Z79.4 Long term (current) use of insulin; Z79.899 Other long term (current) drug therapy
CPT/HCPCS: 82947; 88305; J2704; J7120

== ENCOUNTER 2023-07-04 10:56 | Emergency (ER) | payer MEDICARE, OTHER ==
[~2023-07-04] VITALS: Ht 185.4 cm; Wt 117.9 kg
[2023-07-04 15:17] LABS: BASOPHILS ABSOLUTE AUTO 0.02 K/mm3 (0.00-0.23); BASOPHILS PERCENT AUTO 0 % (0-2); EOSINOPHILS ABSOLUTE AUTO 0.14 K/mm3 (0.00-0.68); EOSINOPHILS PERCENT AUTO 2 % (0-6); Hematocrit 39.4 % (37.0-53.0); Hemoglobin 13.3 g/dL (13.5-17.5); IMMATURE GRAN ABSOLUTE AUTO 0.05 K/mm3 (0.00-0.10); IMMATURE GRAN PERCENT AUTO 1 % (0-1); LYMPHOCYTES ABSOLUTE AUTO 2.01 K/mm3 (0.84-5.20); LYMPHOCYTES PERCENT AUTO 27 % (21-46); MONOCYTES ABSOLUTE AUTO 0.88 K/mm3 (0.16-1.47); MONOCYTES PERCENT AUTO 12 % (4-13); Mean Corpuscular HGB 31.6 pg (26.0-34.0); Mean Corpuscular HGB Conc 33.8 g/dL (31.5-36.5); Mean Corpuscular Volume 94 fL (80-100); Mean Platelet Volume 10.2 fL (9.1-12.4); NEUTROPHILS ABSOLUTE AUTO 4.43 K/mm3 (1.96-9.15); NEUTROPHILS PERCENT AUTO 59 % (41-73); Platelet Count 158 K/mm3 (150-400); RDW Coefficient Variation 13.2 % (11.7-14.2); RDW Standard Deviation 45.1 fL (35.1-46.3); Red Blood Cell Count 4.21 M/mm3 (4.30-5.90); White Blood Cell Count 7.53 K/mm3 (4.00-11.30)
[2023-07-04 15:51] LABS: Albumin, Blood 3.6 g/dL (3.4-5.0); Albumin/Globulin Ratio 0.9 (0.8-1.8); Bilirubin, Total 0.5 mg/dL (0.1-1.0); Bun/Creatinine Ratio 23.4 (12.0-20.0); Calcium, Blood 8.9 mg/dL (8.5-10.1); Creatinine, Blood 0.56 mg/dL (0.60-1.20); Globulin, Blood 3.9 g/dL (2.2-4.0); Potassium, Blood 3.9 mmol/L (3.5-5.5); Total Protein, Blood 7.5 g/dL (6.4-8.2)
[2023-07-04] MEDS ORDERED: SULTRIDS PO (17:23)
[2023-07-04 17:35] VITALS: BP 134/82
== END 2023-07-04 17:48 | disposition home or self-care (01) ==
LOC: ER 10:56
PROVIDERS: Emergency Medicine
DX: N49.2 Inflammatory disorders of scrotum (principal); F17.210 Nicotine dependence, cigarettes, uncomplicated; E78.5 Hyperlipidemia, unspecified; E11.9 Type 2 diabetes mellitus without complications; Z79.899 Other long term (current) drug therapy
CPT/HCPCS: 72193; 80053; 85025; A9270; J1170; Q9967

== ENCOUNTER 2023-07-08 12:32 | Emergency (ER) | payer MEDICARE, OTHER ==
[~2023-07-08] VITALS: Ht 185.4 cm; Wt 115.7 kg
[2023-07-08 14:04] LABS: BASOPHILS ABSOLUTE AUTO 0.04 K/mm3 (0.00-0.23); BASOPHILS PERCENT AUTO 1 % (0-2); EOSINOPHILS PERCENT AUTO 3 % (0-6); Hematocrit 40.8 % (37.0-53.0); Hemoglobin 13.9 g/dL (13.5-17.5); IMMATURE GRAN ABSOLUTE AUTO 0.06 K/mm3 (0.00-0.10); IMMATURE GRAN PERCENT AUTO 1 % (0-1); LYMPHOCYTES ABSOLUTE AUTO 2.66 K/mm3 (0.84-5.20); LYMPHOCYTES PERCENT AUTO 39 % (21-46); MONOCYTES ABSOLUTE AUTO 0.74 K/mm3 (0.16-1.47); MONOCYTES PERCENT AUTO 11 % (4-13); Mean Corpuscular HGB 31.7 pg (26.0-34.0); Mean Corpuscular HGB Conc 34.1 g/dL (31.5-36.5); Mean Corpuscular Volume 93 fL (80-100); Mean Platelet Volume 9.9 fL (9.1-12.4); NEUTROPHILS ABSOLUTE AUTO 3.15 K/mm3 (1.96-9.15); NEUTROPHILS PERCENT AUTO 46 % (41-73); Platelet Count 205 K/mm3 (150-400); RDW Coefficient Variation 13.2 % (11.7-14.2); RDW Standard Deviation 45.1 fL (35.1-46.3); Red Blood Cell Count 4.38 M/mm3 (4.30-5.90); White Blood Cell Count 6.85 K/mm3 (4.00-11.30)
[2023-07-08 14:15] LABS: Albumin, Blood 3.6 g/dL (3.4-5.0); Albumin/Globulin Ratio 0.9 (0.8-1.8); Bilirubin, Total 0.3 mg/dL (0.1-1.0); Bun/Creatinine Ratio 13.9 (12.0-20.0); Calcium, Blood 8.7 mg/dL (8.5-10.1); Creatinine, Blood 0.65 mg/dL (0.60-1.20); Globulin, Blood 4.1 g/dL (2.2-4.0); Potassium, Blood 4.3 mmol/L (3.5-5.5); Total Protein, Blood 7.7 g/dL (6.4-8.2)
[2023-07-08 22:18] VITALS: BP 123/73
[2023-07-08 22:41] LABS: Source, Urine Clean Catch
[2023-07-08 22:47] LABS: Influenza A, PCR NEGATIVE (NEGATIVE); Influenza B, PCR NEGATIVE (NEGATIVE); Resp Syncytial Virus, PCR NEGATIVE (NEGATIVE); SARS-Cov-2 (COVID-19) PCR, MMC NEGATIVE (NEGATIVE)
[2023-07-08 22:56] LABS: Bilirubin, Urine Neg (Neg); Blood, Urine Neg (Neg); Color, Urine Yellow (P-Yellow); Glucose Qualitative, Urine 4+ (Neg); Ketones, Urine 1+ (Neg); Leukocyte Esterase, Urine 1+ (Neg); Nitrite, Urine Neg (Neg); Protein, Urine Neg (Neg); Urobilinogen, Urine 1+ (Normal)
[2023-07-08 23:07] LABS: Appearance, Urine Hazy (Clear)
[2023-07-08 23:08] LABS: Bacteria Mod /hpf; Mucus Light (0-Heavy); Red Blood Cells, Urine 0-2 /hpf (0-2); Squamous Epithelial Cells Few /hpf (Few)
== END 2023-07-09 | disposition short-term general hospital (02) ==
LOC: ER 12:32
PROVIDERS: Physician Assistant; Student in an Organized Health Care Education/Training Program
DX: N49.2 Inflammatory disorders of scrotum (principal); E78.5 Hyperlipidemia, unspecified; F17.210 Nicotine dependence, cigarettes, uncomplicated; Z79.899 Other long term (current) drug therapy
CPT/HCPCS: 0241U; 76870; 80053; 81001; 85025; 87086; 96365; 99285-25; A9270; J0744

== ENCOUNTER → 2025-08-09 | Outpatient (CLI) | payer MEDICARE, OTHER ==
[2025-08-09 16:21] LABS: BASOPHILS ABSOLUTE AUTO 0.01 K/mm3 (0.00-0.23); BASOPHILS PERCENT AUTO 0 % (0-2); EOSINOPHILS ABSOLUTE AUTO 0.12 K/mm3 (0.00-0.68); EOSINOPHILS PERCENT AUTO 2 % (0-6); Hematocrit 41.7 % (37.0-53.0); Hemoglobin 13.7 g/dL (13.5-17.5); IMMATURE GRAN ABSOLUTE AUTO 0.04 K/mm3 (0.00-0.10); IMMATURE GRAN PERCENT AUTO 1 % (0-1); LYMPHOCYTES ABSOLUTE AUTO 1.98 K/mm3 (0.84-5.20); LYMPHOCYTES PERCENT AUTO 29 % (21-46); MONOCYTES ABSOLUTE AUTO 0.65 K/mm3 (0.16-1.47); MONOCYTES PERCENT AUTO 10 % (4-13); Mean Corpuscular HGB Conc 32.9 g/dL (31.5-36.5); Mean Corpuscular Volume 95 fL (80-100); NEUTROPHILS ABSOLUTE AUTO 4.00 K/mm3 (1.96-9.15); NEUTROPHILS PERCENT AUTO 59 % (41-73); NRBC ABSOLUTE 0.00 K/mm3 (0.00-0.02); NRBC Auto 0.0 /100 WBC (0.0-0.2); Platelet Count 220 K/mm3 (150-400); RDW Coefficient Variation 14.0 % (11.7-14.2); RDW Standard Deviation 49.2 fL (35.1-46.3)
[2025-08-09 19:20] LABS: Anion Gap 7 mmol/L (3-11); Blood Urea Nitrogen 9 mg/dL (8-24); CHOL/HDL RATIO 3.2; CO2, Blood 29 mmol/L (21-32); Calcium, Blood 8.9 mg/dL (8.5-10.1); Chloride, Blood 106 mmol/L (98-108); Cholesterol 102 mg/dL (50-200); Creatinine, Blood 0.56 mg/dL (0.60-1.20); Glucose, Blood 86 mg/dL (70-99); HDL Cholesterol 32 mg/dL (>39); LDL/HDL RATIO 1.5; Low Density Lipoprotein Chol 46 mg/dL (0-110); Potassium, Blood 3.7 mmol/L (3.5-5.5); Sodium, Blood 138 mmol/L (136-145); Triglycerides 118 mg/dL (30-160); Very Low Density Lipoprot Chol 23 mg/dL (6-32)
== END ==
LOC: LAB 15:37 → LAB SHORT 15:37
PROVIDERS: Nurse Practitioner Family
DX: K62.5 Hemorrhage of anus and rectum (principal); E11.40 Type 2 diabetes mellitus with diabetic neuropathy, unspecified; Z79.4 Long term (current) use of insulin; E78.5 Hyperlipidemia, unspecified
CPT/HCPCS: 80048; 80061; 83036; 85025